=== PATIENT | female | born 1985 | race Caucasian/White ===

== ENCOUNTER 2016-06-02 19:17 | Emergency (ER) | payer SELFPAY ==
[~2016-06-02] VITALS: Ht 162.6 cm; Wt 93.5 kg
[~2016-06-02 19:17] MED LIST: FAMO40TA52 PO; HYDR-3498 PO
[2016-06-02 19:27] VITALS: Ht 162.6 cm; Wt 93.5 kg
[2016-06-02] MEDS ORDERED: morphine 4 MG/ML VIAL IV STA (20:40)
[2016-06-02] MEDS ORDERED: ONDANSETRON 4 MG INJ IV STA ×2 (20:40→21:59)
[2016-06-02] MEDS ORDERED: SOD CHLORIDE 0.9% 1,000 ML IV STA (20:40)
[2016-06-02 21:32] LABS: BASOPHILS % 0.4 % (0.0-2.0); EOSINOPHILS % 0.3 % (0.0-7.0); HEMATOCRIT 34.1 % (37.0-47.0); HEMOGLOBIN 10.9 g/dl (12.0-16.0); LYMPHOCYTES # 2.3 10^3/ul (0.8-2.9); LYMPHOCYTES % 21.3 % (15.0-51.0); MEAN CORPUSCULAR HEMOGLOBIN 24.2 pg (29.0-33.0); MEAN CORPUSCULAR VOLUME 75.7 fl (82.0-101.0); MEAN PLATELET VOLUME 8.6 fl (7.4-10.4); MONOCYTE # 0.7 10^3/ul (0.3-0.9); MONOCYTES % 6.7 % (0.0-11.0); NEUTROPHIL # 7.6 10^3/ul (1.6-7.5); NEUTROPHILS % 71.3 % (39.0-77.0); PLATELET COUNT 326 10^3/UL (140-440); RED CELL DISTRIBUTION WIDTH 17.5 % (11.5-14.5); UNCORRECTED WBC 10.7 10^3/ul (4.8-10.8); WHITE BLOOD COUNT 10.7 10^3/ul (4.8-10.8)
[2016-06-02 21:33] LABS: ADD UMIC NO; URINE BILIRUBIN (Dip) NEGATIVE (NEGATIVE); URINE BLOOD (Dip) NEGATIVE (NEGATIVE); URINE COLOR LT. YELLOW (YELLOW); URINE GLUCOSE (Dip) NEGATIVE (NEGATIVE); URINE KETONES (Dip) NEGATIVE (NEGATIVE); URINE LEUKOCYTE ESTERASE (Dip) NEGATIVE (NEGATIVE); URINE NITRITE (Dip) NEGATIVE (NEGATIVE); URINE TOTAL PROTEIN (Dip) NEGATIVE (NEGATIVE); URINE UROBILINOGEN (Dip) 0.2 E.U./dL (0.1-1.0)
[2016-06-02 21:36] LABS: CONDITION 1; LH ANALYZER COMMENTS 1
[2016-06-02 21:38] LABS: ALBUMIN 4.3 g/dl (3.3-4.9)
[2016-06-02 21:41] LABS: ALBUMIN/GLOBULIN RATIO 1.16; BILIRUBIN,INDIRECT 0.1 mg/dl (0-1.1); BILIRUBIN,TOTAL 0.1 mg/dl (0.2-1.3); CREATININE 0.74 mg/dl (0.44-1.00)
[2016-06-02 21:42] LABS: CALCIUM 9.2 mg/dl (8.4-10.2)
[2016-06-02] MEDS ORDERED: HYDROmorphONE 1 MG/ML SYG IV STA ×2 (21:59→23:27)
[2016-06-02] MEDS ORDERED: HYDR-902 PO (23:34)
[2016-06-02] MEDS ORDERED: ONDA4TAB14 PO (23:34)
--- NOTE | 2016-06-02 23:39 | ERD ---
ER Documentation Chief Complaint Date/Time DATE: 06/02/16 TIME: 23:36 Chief Complaint RUq abd pain x 3 days HPI Patient is a 30-year-old female who has a history of gallbladder stones complaining of right upper quadrant pain that has been going on for the past 3- 4 days. Pain is worse with food and she does admit to nausea and vomiting. Also admits to subjective fever at home. Pain is 8 out of 10 in the right upper quadrant and radiates to her back. Denies any dysuria, hematuria, or frequency. ROS All systems reviewed and are negative except as per history of present illness. Medications Home Meds Active Scripts Ondansetron (Ondansetron Odt) 4 Mg Tab.rapdis, 4 MG PO Q6H Y for NAUSEA AND/OR VOMITING, #20 TAB Prov:JYOTHI MARINELLI PA-C 06/02/16 Hydrocodone/Acetaminophen ([place] 10-325 Tablet) 1 Each Tablet, 1 TAB PO Q6H Y for PAIN, #20 TAB Prov:JYOTHI MARINELLI PA-C 06/02/16 Famotidine* (Famotidine*) 40 Mg Tablet, 40 MG PO HS, #20 TAB Prov:LISSY HOLLEY MD 12/26/15 Hydrocodone Bit-Acetaminophen* ([place]*) 5-325 Mg Tab, 1 TAB PO Q4H Y for PAIN for 10 Days, TAB Prov:LISSY HOLLEY MD 12/26/15 Allergies Allergies: Coded Allergies: No Known Allergy (Unverified , 10/27/15) PMhx/Soc History of Surgery: Yes (CS X3) Anesthesia Reaction: No Hx Neurological Disorder: Yes (numbness in arms ) Hx Respiratory Disorders: Yes (ASTHMA) Hx Cardiac Disorders: No Hx Psychiatric Problems: No Hx Miscellaneous Medical Probl: Yes (GALLSTONE, ) Hx Alcohol Use: No Hx Substance Use: No Hx Tobacco Use: No Smoking Status: Never smoker FmHx Family History: No diabetes Physical Exam Vitals Vital Signs Date Time Temp Pulse Resp B/P Pulse Ox O2 Delivery O2 Flow Rate FiO2 06/02/16 19:27 99.1 125 20 131/61 100 Physical Exam General: well developed, well nourished, alert, nontoxic, no distress Head: normocephalic, atraumatic Eyes: PERRL, normal conjunctiva Neck: Supple, nontender, no lymphadenopathy, no midline tenderness Oropharynx: no tonsilar erythema or edema, uvula midline, no exudates, no kissing tonsils, no drooling Respiratory: Clear to auscaultation bilaterally, speaks in full sentences, no use of accesory muscles or labored breathing, no rales, ronchi, or wheezing Cardiovascular: RRR, No murmurs GI: soft, non distended, positive murphys sign, negative mcburneys point tenderness, no cva tenderness bilaterally, no rebound or guarding Result Diagram: 06/02/16205406/02/162054 Results 24 hrs Laboratory Tests Test 06/02/16 20:55 Alanine Aminotransferase (ALT/SGPT) 25IU/L Albumin 4.3g/dl Albumin/Globulin Ratio 1.16 Alkaline Phosphatase 74IU/L Anion Gap 18 Aspartate Amino Transf (AST/SGOT) 26IU/L Basophils # 0.010^3/ul Basophils % 0.4% Blood Morphology Comment Blood Urea Nitrogen 19mg/dl Calcium Level 9.2mg/dl Carbon Dioxide Level 26mmol/L Chloride Level 107mmol/L Creatinine 0.74mg/dl Direct Bilirubin 0.00mg/dl Eosinophils # 0.010^3/ul Eosinophils % 0.3% Globulin 3.70g/dl Glucose Level 81mg/dl Hematocrit 34.1% Hemoglobin 10.9g/dl Indirect Bilirubin 0.1mg/dl Lipase 139U/L Lymphocytes # 2.310^3/ul Lymphocytes % 21.3% Mean Corpuscular Hemoglobin 24.2pg Mean Corpuscular Hemoglobin Concent 32.0g/dl Mean Corpuscular Volume 75.7fl Mean Platelet Volume 8.6fl Monocytes # 0.710^3/ul Monocytes % 6.7% Neutrophils # 7.610^3/ul Neutrophils % 71.3% Nucleated Red Blood Cells # 0.010^3/ul Nucleated Red Blood Cells % 0.0/100WBC Platelet Count 52261^3/UL Potassium Level 4.0mmol/L Red Blood Count 4.5010^6/ul Red Cell Distribution Width 17.5% Sodium Level 147mmol/L Total Bilirubin 0.1mg/dl Total Protein 8.0g/dl Urine Bilirubin NEGATIVE Urine Clarity SLIGHTLY CLOUDY Urine Color LT. YELLOW Urine Glucose NEGATIVE% Urine Hemoglobin NEGATIVE Urine Ketones NEGATIVE Urine Leukocyte Esterase NEGATIVE Urine Nitrite NEGATIVE Urine Specific [place] >=1.030 Urine Total Protein NEGATIVE Urine Urobilinogen 0.2 E.U./dL Urine pH 5.5 White Blood Count 10.710^3/ul Current Medications Medications (Trade) Dose Ordered Sig/Donald Route PRN Reason Start Time Stop Time Status Last Admin Dose Admin Sodium Chloride (NS) 1,000 ml @ 1,000 mls/hr Q1H STAT IV 06/02/16 20:40 06/02/16 21:39 DC 06/02/16 21:09 Ondansetron HCl (Zofran Inj) 4 mg ONCE STAT IV 06/02/16 20:40 06/02/16 20:42 DC 06/02/16 21:09 Morphine Sulfate (morphine) 4 mg ONCE STAT IV 06/02/16 20:40 06/02/16 20:42 DC 06/02/16 21:09 Hydromorphone HCl (Dilaudid) 1 mg ONCE STAT IV 06/02/16 21:59 06/02/16 22:00 DC 06/02/16 22:04 Ondansetron HCl (Zofran Inj) 4 mg ONCE STAT IV 06/02/16 21:59 06/02/16 22:00 DC 06/02/16 22:04 Hydromorphone HCl (Dilaudid) 0.5 mg ONCE STAT IV 06/02/16 23:27 06/02/16 23:28 DC 06/02/16 23:35 Procedures/MDM Patient has right upper quadrant pain. She is afebrile. She has no elevated white blood cell count and her chemistry panel is unremarkable. Gallbladder ultrasound does show a stone however there is no gallbladder wall thickening and the right kidney and CBD are within normal limits. She was given pain medications here in the emergency room with resolution of her symptoms. She was discharged with prescription for [place] and instructions to follow-up with primary care doctor for outpatient referral to general surgery for cholecystectomy. Recommended this patient follow up with her primary care doctor within 48 hours or return to the emergency room for any worsening of symptoms. However this time I do believe there is suitable for outpatient management. I answered all their questions and they agreed with the plan and were discharged home. Departure Diagnosis: Primary Impression: Biliary colic Condition: Stable Patient Instructions: Biliary Colic With Gallstone (Confirmed) Additional Instructions: Call your primary care doctor TOMORROW for an appointment during the next 1-2 days.See the doctor sooner or return here if your condition worsens before your appointment time. JYOTHI MARINELLI PA-C Jun 02, 2016 23:39
[2016-06-03 01:16] VITALS: BP 128/77; PULSE 63; RESP 18; TEMP 98.5
== END 2016-06-03 00:25 | disposition home or self-care (01) ==
LOC: FTE 19:17
DX: K80.50 Calculus of bile duct without cholangitis or cholecystitis without obstruction (principal); R11.2 Nausea with vomiting, unspecified; J45.909 Unspecified asthma, uncomplicated
CPT/HCPCS: 36415; 76705; 80053; 81003; 83690; 85025; 96374; 96375; 96376; 99285; J1170; J2270; J2405; J7030

== ENCOUNTER 2018-04-08 11:23 | Emergency (ER) | END 2018-04-08 12:01 | disposition home or self-care (01) ==

== ENCOUNTER 2018-04-13 09:08 | Emergency (ER) | END 2018-04-13 10:09 | disposition home or self-care (01) ==

== ENCOUNTER 2018-04-27 20:29 | Emergency (ER) | END 2018-04-27 22:22 | disposition home or self-care (01) ==

== ENCOUNTER 2018-05-11 03:52 | Emergency (ER) | END 2018-05-11 05:56 | disposition home or self-care (01) ==

== ENCOUNTER 2018-08-15 12:07 | Emergency (ER) | payer OTHER ==
[~2018-08-15] VITALS: Ht 167.6 cm; Wt 99.0 kg
[~2018-08-15 12:07] MED LIST changes: +AMOX1TAB10 PO; +FAMO40TA5 PO; -FAMO40TA52 PO; +HYDR-3980 PO; +HYDR-4011 PO; +IBUP-1542 PO; +NAPR-985 PO; +ONDA4TAB14 PO; +ONDA8TAB14 PO; +PENI500T PO; +TRAM50TA2 PO
[2018-08-15 12:55] VITALS: BP 112/57; PULSE 78; RESP 18; Ht 167.6 cm; Wt 99.0 kg
[2018-08-15] MEDS ORDERED: NAPR-985 PO (15:26)
[2018-08-15] MEDS ORDERED: ACET500T98 PO (15:26)
--- NOTE | 2018-08-15 15:39 | ERD ---
ER Documentation Chief Complaint Chief Complaint BAEZ X 3 DAYS, HX OF BLOOD CLOTS HPI 33-year-old female no past medical or surgical history presents with 3-day complaint of persistent frontal headache. States that she was getting into family members truck and hit her head on the frame of truck. She denies any trauma or LOC. No injury or bleeding from the head. States she has previous history of 'blood clots in the brain "occurred during her last . Denies being on any blood thinners. Has not tried any medications at home for headache. She otherwise denies chest pain, cyst or dizziness, blurry vision, shortness of breath, dyspnea, nausea vomiting, abdominal pain, urinary symptoms. ROS All systems reviewed and are negative except as per history of present illness. Medications Home Meds Active Scripts Acetaminophen (Tylenol) 500 Mg Tab, 500 MG PO Q6 for 7 Days, TAB Prov:KARIN BAIRES PA-C 08/15/18 Naproxen* (Naprosyn*) 500 Mg Tablet, 500 MG PO BID PRN for PAIN AND/OR INFLAMMATION, #30 TAB Prov:KARIN BAIRES PA-C 08/15/18 Ondansetron (Ondansetron Odt) 4 Mg Tab.rapdis, 4 MG PO Q6H PRN for NAUSEA AND/OR VOMITING, #10 TAB Prov:JESICA BRUMFIELD PA-C 05/11/18 Naproxen* (Naprosyn*) 500 Mg Tablet, 500 MG PO BID PRN for PAIN AND/OR INFLAMMATION, #30 TAB Prov:JESICA BRUMFIELD PA-C 05/11/18 Ondansetron (Ondansetron Odt) 8 Mg Tab.rapdis, 8 MG PO Q6H PRN for NAUSEA AND/OR VOMITING, #10 TAB Prov:LISSY HOLLEY MD 04/27/18 Tramadol HCl (Tramadol HCl) 50 Mg Tablet, 50 MG PO Q4 PRN for PAIN, #20 TAB Prov:LISSY HOLLEY MD 04/27/18 Ibuprofen* (Motrin*) 600 Mg Tab, 600 MG PO Q6, #30 TAB Prov:JESICA BRUMFIELD PA-C 04/13/18 Amoxicillin/Potassium Clav (Amox-Clav 875-125 mg Tablet) 875-125 mg Tab, 1 TAB PO BID for 10 Days, #20 TAB Prov:JESICA BRUMFIELD PA-C 04/13/18 Penicillin V Potassium* (Penicillin V K*) 500 Mg Tab, 500 MG PO QID for 7 Days, TAB Prov:COURTNEY OQUENDO PA-C 04/08/18 Naproxen* (Naprosyn*) 500 Mg Tablet, 500 MG PO BID PRN for PAIN AND/OR INFLAMMATION, #30 TAB Prov:COURTNEY OQUENDO PA-C 04/08/18 Hydrocodone/Acetaminophen ([place] 5-325 Tablet) 1 Each Tablet, 1 TAB PO Q6H PRN for PAIN, #7 TAB Prov:COURTNEY OQUENDO PA-C 04/08/18 Ondansetron (Ondansetron Odt) 4 Mg Tab.rapdis, 4 MG PO Q6H PRN for NAUSEA AND/OR VOMITING, #20 TAB Prov:JYOTHI MARINELLI PA-C 06/02/16 Hydrocodone/Acetaminophen ([place] 10-325 Tablet) 1 Each Tablet, 1 TAB PO Q6H PRN for PAIN, #20 TAB Prov:JYOTHI MARINELLI PA-C 06/02/16 Famotidine* (Famotidine*) 40 Mg Tablet, 40 MG PO HS, #20 TAB Prov:LISSY HOLLEY MD 12/26/15 Hydrocodone Bit-Acetaminophen* ([place]*) 5-325 Mg Tab, 1 TAB PO Q4H PRN for PAIN for 10 Days, TAB Prov:LISSY HOLLEY MD 12/26/15 Allergies Allergies: Coded Allergies: No Known Allergy (Unverified , 08/15/18) PMhx/Soc History of Surgery: Yes () Anesthesia Reaction: No Hx Neurological Disorder: Yes (blood clots in the brain) Hx Respiratory Disorders: No Hx Cardiac Disorders: No Hx Psychiatric Problems: No Hx Miscellaneous Medical Probl: Yes (Gallstones) Hx Alcohol Use: No Hx Substance Use: No Hx Tobacco Use: Yes (2 sticks/day) Smoking Status: Current every day smoker FmHx Family History: No diabetes, No coronary disease, No other Physical Exam Vitals Vital Signs Date Temp Pulse Resp B/P (MAP) Pulse Ox O2 O2 Flow FiO2 Time Delivery Rate 08/15/18 98.0 78 18 112/57 100 12:55 (75) Physical Exam I have reviewed the triage vital signs. Const: Well nourished, well developed, appears stated age Eyes: PERRL, no conjunctival injection HENT: NCAT, Neck supple without meningismus. no lesions, lacerations, non tender to palpation to cranium CV: RRR, Warm, well-perfused extremities RESP: CTAB, Unlabored respiratory effort GI: soft, non-tender, non-distended, no masses MSK: No gross deformities appreciated Skin: Warm, dry. No rashes Neuro: Alert,grossly non focal Psych: Appropriate mood and affect. Procedures/MDM This patient presents with a headache most consistent with primary headache. Reports minor head trauma and exam is unremarkable. Differential diagnosis includes migraine versus tension type headache. No headache red flags. Neurologic exam without evidence of meningismus, focal neurologic findings. Presentation not consistent with acute intracranial bleed to include SAH (lack of risk factors, headache history). Presentation not consistent with acute [employer] infection to include meningitis or brain abscess, Temporal arteritis unlikely, as is acute angle closure glaucoma given history and physical findings. Presentation not consistent with other acute, emergent causes of headache at this time. Plan to treat symptomatically with pain medication. No indication for imaging/LP at this time. Plan: pain medication, PMD follow up DISPOSITION PLAN: We discussed follow up with the patient's primary care doctor within 24 to 48 hours. Patient counseled regarding my diagnostic impression and care plan. Prior to discharge all questions answered. Pt agrees with treatment plan and understands strict return precautions. Precautionary instructions provided including instructions to return to the ER if not improving or for any worsening or changing symptoms or concerns. Departure Diagnosis: Primary Impression: Headache Condition: Stable Patient Instructions: Self-Care for Headaches Referrals: COMM[facility] YOU HAVE RECEIVED A MEDICAL SCREENING EXAM AND THE RESULTS INDICATE THAT YOU DO NOT HAVE A CONDITION THAT REQUIRES URGENT TREATMENT IN THE EMERGENCY DEPARTMENT. FURTHER EVALUATION AND TREATMENT OF YOUR CONDITION CAN WAIT UNTIL YOU ARE SEEN IN YOUR DOCTORS OFFICE WITHIN THE NEXT 1-2 DAYS. IT IS YOUR RESPONSIBILITY TO MAKE AN APPOINTMENT FOR FOLOW-UP CARE. IF YOU HAVE A PRIMARY DOCTOR --you should call your primary doctor and schedule an appointment IF YOU DO NOT HAVE A PRIMARY DOCTOR YOU CAN CALL OUR PHYSICIAN REFERRAL HOTLINE AT IF YOU CAN NOT AFFORD TO SEE A PHYSICIAN YOU CAN CHOSE FROM THE FOLLOWING [facility] [address] [facility] [address] [facility] [facility] [address] [facility] [address] [facility]. [facility] [address] [facility] [facility] [address] Additional Instructions: Call your primary care doctor TOMORROW for an appointment during the next 2-3 days.See the doctor sooner or return here if your condition worsens before your appointment time. KARIN BAIRES PA-C Aug 15, 2018 15:39
== END 2018-08-15 15:43 | disposition home or self-care (01) ==
LOC: FTE 12:07
DX: R51 Headache (principal); F17.210 Nicotine dependence, cigarettes, uncomplicated
CPT/HCPCS: 99282